=== PATIENT | male | born 1970 ===

== ENCOUNTER 2021-05-05 10:33 | Observation (INO) | payer OTHER ==
[~2021-05-05] VITALS: Ht 182.9 cm; Wt 124.0 kg
[2021-05-05 11:20] LABS: BASOPHILS ABSOLUTE AUTO 0.09 K/mm3 (0.00-0.23); BASOPHILS PERCENT AUTO 1 % (0-2); EOSINOPHILS ABSOLUTE AUTO 0.03 K/mm3 (0.00-0.68); EOSINOPHILS PERCENT AUTO 0 % (0-6); Hematocrit 39.7 % (37.0-53.0); Hemoglobin 13.5 g/dL (13.5-17.5); IMMATURE GRAN ABSOLUTE AUTO 0.15 K/mm3 (0.00-0.10); IMMATURE GRAN PERCENT AUTO 1 % (0-1); LYMPHOCYTES ABSOLUTE AUTO 1.88 K/mm3 (0.84-5.20); LYMPHOCYTES PERCENT AUTO 10 % (21-46); MONOCYTES ABSOLUTE AUTO 1.02 K/mm3 (0.16-1.47); MONOCYTES PERCENT AUTO 5 % (4-13); Mean Corpuscular HGB 30.3 pg (26.0-34.0); Mean Corpuscular Volume 89 fL (80-100); Mean Platelet Volume 10.5 fL (9.1-12.4); NEUTROPHILS ABSOLUTE AUTO 15.58 K/mm3 (1.96-9.15); NEUTROPHILS PERCENT AUTO 83 % (41-73); Platelet Count 304 K/mm3 (150-400); RDW Coefficient Variation 13.3 % (11.7-14.2); Red Blood Cell Count 4.46 M/mm3 (4.30-5.90); White Blood Cell Count 18.75 K/mm3 (4.00-11.30)
[2021-05-05] MEDS ORDERED: Prinivil10 MG PO (11:30)
[2021-05-05] MEDS ORDERED: METF500 PO (11:30)
[2021-05-05] MEDS ORDERED: INSULANI SC (11:31)
[2021-05-05 11:49] LABS: Alanine Aminotransfer (ALT/SGP 197 U/L (12-78); Albumin, Blood 3.5 g/dL (3.4-5.0); Alk Phos 106 U/L (50-136); Anion Gap 23 mmol/L (6-16); Aspartate Aminotrans (AST/SGOT 153 U/L (12-37); Bilirubin, Total 1.1 mg/dL (0.1-1.0); Blood Urea Nitrogen 19 mg/dL (8-24); Bun/Creatinine Ratio 18.4 (12.0-20.0); CO2, Blood 13 mmol/L (21-32); Calcium, Blood 7.7 mg/dL (8.5-10.1); Chloride, Blood 90 mmol/L (98-108); Creatinine, Blood 1.03 mg/dL (0.60-1.20); Globulin, Blood 3.4 g/dL (2.2-4.0); Glomerular Filtration Rate >60 (60-); Glucose, Blood 327 mg/dL (70-99); Potassium, Blood 3.6 mmol/L (3.5-5.5); Sodium, Blood 126 mmol/L (136-145); Total Protein, Blood 6.9 g/dL (6.4-8.2)
[2021-05-05 11:55] LABS: Ethanol (Alcohol), Blood, Med <3 mg/dL
[2021-05-05 12:49] LABS: U Amphetamine Screen Not Detected; U Barbituate Screen Not Detected; U Benzodiazapine Screen Not Detected; U Buprenorphine Screen Not Detected; U Cannabinoids Screen Not Detected; U Cocaine Screen Not Detected; U Methadone Screen Not Detected; U Methamphetamine Screen Not Detected; U Opiates Screen Not Detected; U Oxycodone Screen Not Detected; U Phencyclidine Screen Not Detected; U Propoxyphene Screen Not Detected
[2021-05-05 12:54] LABS: Base Excess Venous -6.3 mmol/L; Bicarbonate Venous 19.7 mmol/L (24.0-30.0); PCO2 Venous 35.4 mmHg (38-42); PO2 Venous 65.3 mmHg (38-42); pH Blood Venous 7.35 (7.34-7.37)
[2021-05-05 14:50] LABS: Anion Gap 15 mmol/L (6-16); Blood Urea Nitrogen 16 mg/dL (8-24); Bun/Creatinine Ratio 20.6 (12.0-20.0); CO2, Blood 21 mmol/L (21-32); Calcium, Blood 7.4 mg/dL (8.5-10.1); Chloride, Blood 96 mmol/L (98-108); Creatinine, Blood 0.78 mg/dL (0.60-1.20); Glomerular Filtration Rate >60 (60-); Glucose, Blood 244 mg/dL (70-99); Potassium, Blood 3.8 mmol/L (3.5-5.5); Sodium, Blood 132 mmol/L (136-145)
--- NOTE | 2021-05-05 17:56 | NUR ---
ADMISSION/SHIFT SUMMARY: PT IS A NEW ADMIT, ARRIVES FROM ER APPROX 1445. PT ARRIVES ALERT, ORIENTED TO SELF, PLACE, SITUATION AND IS ABLE TO STAND AND TRANSFER SELF FROM GURNEY TO BED. PT IS MOSTLY KINYARWANDA SPEAKING, ACCOMPANIED BY FAMILY MEMBERS WHO ARE ABLE TO TRANSLATE, CREPING MACHINE OPERATOR HELPER PHONE IS ALSO PLACED IN ROOM FOR USE. PER PT'S FAMILY, PT HAS NOT BEEN A HEAVY DRINKER FOR APPROX 3 YEARS BUT HAS BEEN VISITING FAMILY THIS PAST WEEK AND HAS BEEN DRINKING HEAVILY IN ADDITION TO NOT TAKING HIS DAILY MEDICATIONS/MANAGING HIS DIABETES. PT'S FAMILY STATES HE BEGAN TO C/O N/V APPROX 2 DAYS AGO THEN WAS FOUND W/POSSIBLE SEIZURE LIKE ACTIVITY THIS AM, NO HX OF SEIZURES, EMS WAS CALLED. SINCE ARRIVAL, NO SEIZURE ACTIVITY NOTED. SEIZURE PADS ARE IN PLACE ON PT'S BED. CIWA PROTOCOL IN PLACE, NO NEED FOR TREATMENT THUS FAR. PT HAS BEEN ANSWERING QUESTIONS APPROPRIATELY, ABLE TO MAKE NEEDS KNOWN. O2 SATS MAINTAINED >93% ON RA, SR ON MONITOR, PT DENIES SOB OR CHEST PAIN/PRESSURE. AT THIS TIME, PT RESTING QUIETLY IN ROOM WITH FAMILY AT BEDSIDE, WILL CONTINUE TO MONITOR AND TREAT ACCORDINGLY UNTIL CHANGE OF SHIFT.
--- NOTE | 2021-05-05 18:26 | NUR ---
END OF SHIFT ASSESSMENT PT ADMITTED TO PCU AT 1445. PT CAME FROM ED WHERE HE HAD BEEN COMPLAINING OF NAUSEA AND VOMITTING OVER THE COURSE OF 2-3 DAYS. DAUGHTER STATES HE WAS SLEEPING ON HIS BED AND LOOKED LIKE HE WAS HAVING A SEIZURE AROUND 10. PT IS UP FROM [place] WITH TO VISIT DAUGHTER FOR THE WEEK. HE HAD BEEN DRINKING FOR THE WEEK. PRIOR TO THIS WEEK, PT HAD BEEN SOBER FOR SEVERAL YEARS. PT QUITE SMOKING 3 MONTHS AGO. PT HAS DM AND HAS NOT BEEN TAKING MEDICATIONS OR CHECKING BLOOD SUGARS THIS WEEK. PT IS LETHARGIC BUT IS ABLE TO BE WAKENED AND A/O. HE MAINLY MONGOLIAN SPEAKING. IS ABLE TO WALK TO BATHROOM WITH HELP. HE STATES LAST BM WAS ON 05/03/2021 AND WAS DIARRHEA. PT HAD DIARRHEA 2 DAYS PRIOR THAT LBM. PT IS ABLE TO TURN HIMSELF BUT NEEDS SOME HELP GETTING OUT OF BED. BLOOD SUGARS HAVE BEEN IN THE MID 200'S. HEART SOUNDS AND LUNGS SOUNDS WNL. NO SKIN BREAKDOWN OR INJURIES. ACTIVE ROM WNL. STRENGTH EQUAL AND WNL. PULSES 3+, NO EDEMA. PT HAS , DAUGHER AND GRANDDAUGHTER PRESENT. PT IS COOPERATIVE AND ABLE TO TRANSFER STANDBY. PATIENT USES CALL LIGHT APPROPRIATELY. NO COMPLAINTS OF PAIN OTHER THAN TONGUE. PT STATES HE BIT IT SOMETIME TODAY. PT DAUGHTER THINKS IT WAS DURING HIS TREMORS THAT HE MAY HAVE BIT HIS TONGUE.
[2021-05-06 04:14] LABS: BASOPHILS ABSOLUTE AUTO 0.03 K/mm3 (0.00-0.23); BASOPHILS PERCENT AUTO 0 % (0-2); EOSINOPHILS ABSOLUTE AUTO 0.05 K/mm3 (0.00-0.68); EOSINOPHILS PERCENT AUTO 0 % (0-6); Hematocrit 40.8 % (37.0-53.0); Hemoglobin 13.8 g/dL (13.5-17.5); IMMATURE GRAN ABSOLUTE AUTO 0.04 K/mm3 (0.00-0.10); IMMATURE GRAN PERCENT AUTO 0 % (0-1); LYMPHOCYTES ABSOLUTE AUTO 1.58 K/mm3 (0.84-5.20); LYMPHOCYTES PERCENT AUTO 14 % (21-46); MONOCYTES ABSOLUTE AUTO 0.58 K/mm3 (0.16-1.47); MONOCYTES PERCENT AUTO 5 % (4-13); Mean Corpuscular HGB 29.6 pg (26.0-34.0); Mean Corpuscular HGB Conc 33.8 g/dL (31.5-36.5); Mean Corpuscular Volume 88 fL (80-100); Mean Platelet Volume 10.4 fL (9.1-12.4); NEUTROPHILS ABSOLUTE AUTO 9.25 K/mm3 (1.96-9.15); NEUTROPHILS PERCENT AUTO 80 % (41-73); Platelet Count 276 K/mm3 (150-400); RDW Coefficient Variation 13.7 % (11.7-14.2); RDW Standard Deviation 42.6 fL (35.1-46.3); Red Blood Cell Count 4.66 M/mm3 (4.30-5.90); White Blood Cell Count 11.53 K/mm3 (4.00-11.30)
[2021-05-06 04:35] LABS: Alanine Aminotransfer (ALT/SGP 201 U/L (12-78); Albumin, Blood 3.2 g/dL (3.4-5.0); Albumin/Globulin Ratio 0.9 (0.8-1.8); Alk Phos 102 U/L (50-136); Anion Gap 7 mmol/L (6-16); Aspartate Aminotrans (AST/SGOT 162 U/L (12-37); Bilirubin, Total 1.5 mg/dL (0.1-1.0); Blood Urea Nitrogen 10 mg/dL (8-24); Bun/Creatinine Ratio 13.7 (12.0-20.0); CO2, Blood 28 mmol/L (21-32); Chloride, Blood 99 mmol/L (98-108); Creatinine, Blood 0.73 mg/dL (0.60-1.20); Globulin, Blood 3.4 g/dL (2.2-4.0); Glomerular Filtration Rate >60 (60-); Glucose, Blood 245 mg/dL (70-99); Potassium, Blood 3.5 mmol/L (3.5-5.5); Sodium, Blood 134 mmol/L (136-145); Total Protein, Blood 6.6 g/dL (6.4-8.2)
--- NOTE | 2021-05-06 05:54 | NUR ---
shift summary pt rested well through the night. alert and oriented, able to make needs known, uses call light appropriately. sami speaking only. ciwas all 0, 0, 0. no prn administered. sats >95% on room air. tele reads nsr. no c/o chest pain, or pain in general. us done on ruq in middle of night, pending results. voiding to bathroom. vss. call light within reach, bed in lowest position. will continue to monitor.
--- NOTE | 2021-05-06 11:43 | NUR ---
UPDATE: ASSUMED CARE OF PT THIS AM AFTER RECEIVING REPORT FROM SHIRLEY SALDANA. PT CONTINUES A&O, ABLE TO ANSWER QUESTIONS APPROPRIATELY, COOPERATIVE WITH CARE. CIWA SCORES CONTINUES TO BE 0. NO SEIZURE LIKE ACTIVITY NOTED THUS FAR. PT DENIES SOB OR CHEST PAIN/PRESSURE. PT DOES C/O PAIN TO L SIDE OF TONGUE, APPEARS TO HAVE BITTEN IT AND PT STATES IT FEELS IF HE HAD. PT ABLE TO STAND AND WALK TO RESTROOM W/OUT DIFFICULTY. AIR AND HYDRONIC BALANCING TECHNICIAN PHONE CONTINUES AT BEDSIDE, FAMILY OFTEN IN ROOM AND ABLE TO ASSIST WITH TRANSLATION WELL. WILL CONTINUE TO MONITOR AND TREAT ACCORDINGLY UNTIL CHANGE OF SHIFT.
[2021-05-06] MEDS ORDERED: ONE-A-DAY PRO200 MCG PO (15:38)
[2021-05-06] MEDS ORDERED: Nicoderm Cq1 EAC1 TOP (15:38)
[2021-05-06] MEDS ORDERED: B-1100 M1 PO (15:39)
--- NOTE | 2021-05-06 16:30 | NUR ---
DISCHARGE: PT HAS BEEN CLEARED FOR DISCHARGE HOME. IV ACCESS DC'D WNL. DC PAPERWORK AND INSTRUCTIONS HAVE BEEN PROVIDED AND REVIEWED, ALL QUESTIONS HAVE BEEN ANSWERED. PT DISCHARGE HOME WITH FAMILY IN NAD.
[2021-05-06 22:07] LABS: HBSAG SCREEN Negative (Negative); HEP A AB, IGM Negative (Negative); HEP B CORE AB, IGM Negative (Negative); HEP C VIRUS AB <0.1 (0.0-0.9)
== END 2021-05-06 16:12 | disposition home or self-care (01) ==
LOC: ER 10:33 → PCU 10:34 → EDBD 13:01 → PCU 13:01 → ER 13:01 → PCU 14:37
PROVIDERS: Emergency Medicine; ADMIT Internal Medicine
DX: R56.9 Unspecified convulsions (principal); F10.10 Alcohol abuse, uncomplicated; R00.0 Tachycardia, unspecified; I95.9 Hypotension, unspecified; E87.1 Hypo-osmolality and hyponatremia; E87.2 Acidosis; R65.10 Systemic inflammatory response syndrome (SIRS) of non-infectious origin without acute organ dysfunction; R79.89 Other specified abnormal findings of blood chemistry; E11.9 Type 2 diabetes mellitus without complications; I10 Essential (primary) hypertension; E78.5 Hyperlipidemia, unspecified; E66.9 Obesity, unspecified; F17.210 Nicotine dependence, cigarettes, uncomplicated; Z79.4 Long term (current) use of insulin; Z68.31 Body mass index [BMI] 31.0-31.9, adult
CPT/HCPCS: 36415; 70450; 76705; 80048; 80053; 82803; 82947; 83690; 85025; 93005; 93010; A9270; G0480; J1650; J1815; J2060; J3411; J3475; J7030; J7042